=== PATIENT | male | born 1960 | race Caucasian/White ===

== ENCOUNTER 2023-03-15 06:48 | Day surgery (SDC) | payer OTHER ==
[~2023-03-15] VITALS: Ht 175.3 cm; Wt 108.9 kg
[~2023-03-15 06:48] MED LIST: ASPIRIN 81 LOW81 MG PO; NEXIUM20 M1 PO; ZESTRIL10 M1 PO; [UNRECOGNIZED DRUG - OTHER] PO
[2023-03-15 08:53] VITALS: BP 129/76
== END 2023-03-15 09:05 | disposition home or self-care (01) | DRG 951 ==
LOC: ENDO 06:48
PROVIDERS: ATTEND Surgery
PROC: 0DJD8ZZ Inspection of Lower Intestinal Tract, Via Natural or Artificial Opening Endoscopic (ICD-10-PCS; principal; 2023-03-15)
DX: Z12.11 Encounter for screening for malignant neoplasm of colon (principal); K57.30 Diverticulosis of large intestine without perforation or abscess without bleeding; K64.8 Other hemorrhoids; I10 Essential (primary) hypertension